=== PATIENT | female | born 1950 | race Caucasian/White ===

== ENCOUNTER 2021-01-21 15:47 | Emergency (ER) | payer OTHER, BC ==
[2021-01-21 16:39] VITALS: BP 118/65; PULSE 57; TEMP 98.6; BMI 30.7
[2021-01-21] MEDS ORDERED: ACETAMINOPHEN 500 MG TABLET (FP) PO ONE (16:54)
[2021-01-21] MEDS ORDERED: METHOCARBAMOL 500 MG TABLET PO ONE (16:54)
[2021-01-21] MEDS ORDERED: METHOCARBAMOL 500 MG TABLET ONE (17:00)
[2021-01-21] MEDS ORDERED: ACETAMINOPHEN 500 MG TABLET (FP) ONE (17:00)
== END 2021-01-21 18:42 | disposition home or self-care (01) ==
LOC: FER 15:47
DX: S50.311A Abrasion of right elbow, initial encounter (principal); S80.211A Abrasion, right knee, initial encounter; M79.644 Pain in right finger(s); W01.198A Fall on same level from slipping, tripping and stumbling with subsequent striking against other object, initial encounter; Y92.480 Sidewalk as the place of occurrence of the external cause; Y93.01 Activity, walking, marching and hiking
CPT/HCPCS: 71101-TC-RT-FY; 73030-TC-RT-FY; 73070-TC-RT-FY; 73110-TC-RT-FY; 73130-TC-RT-FY; 73562-TC-RT-FY; 73610-TC-LT-FY; 73630-TC-LT; 99285-25

== ENCOUNTER 2022-11-08 09:05 | Emergency (ER) | payer OTHER, BC ==
[2022-11-08] MEDS ORDERED: CLINDAMYCIN HCL 300 MG CAPSULE PO ONE (09:10)
[2022-11-08] MEDS ORDERED: CLINDAMYCIN HCL 150 MG CAPSULE (FP) ONE (09:15)
== END 2022-11-08 09:36 | disposition home or self-care (01) ==
LOC: FER 09:05
DX: L03.012 Cellulitis of left finger (principal)
CPT/HCPCS: 99282-25

== ENCOUNTER 2024-02-09 08:32 | Emergency (ER) | payer OTHER, BC ==
[2024-02-09 08:51] VITALS: BP 121/64; PULSE 81; RESP 20; TEMP 97.2; BMI 28.3
[2024-02-09] MEDS: SODIUM CHLORIDE 0.9% 500 ML INFUS.BAG IV ONE (09:45)
[2024-02-09] MEDS ORDERED: ACETAMINOPHEN 500 MG TABLET (FP) ONE (09:46)
[2024-02-09] MEDS: ACETAMINOPHEN 500 MG TABLET (FP) PO ONE (09:46)
[2024-02-09 09:50] LABS: ALBUMIN 3.5 g/dl (3.4-5.0); BILIRUBIN,TOTAL 0.3 mg/dl (0.2-1); CALCIUM 9.1 mg/dl (8.5-10.1); CREATININE 1.2 mg/dl (0.6-1.3); HEMATOCRIT 37.2 % (32.4-45.2); HEMOGLOBIN 11.3 G/dL (10.7-15.3); MCH 25.1 pg (25.7-33.7); MCHC 30.3 g/dl (32.0-36.0); MEAN CELL VOLUME 82.6 fl (80-96); MEAN PLT VOLUME 8.5 fl (7.5-11.1); PLATELET COUNT 286.3 10^3/uL (134-434); POTASSIUM 4.7 mmol/L (3.5-5.1); RDW 18.1 % (11.6-15.6); TOT PROT 6.1 g/dl (6.4-8.2); WHITE BLOOD COUNT 6.9 10^3/uL (4.0-10.8)
[2024-02-09 09:55] LABS: PLATELET ESTIMATE ADEQUATE
== END 2024-02-09 12:06 | disposition home or self-care (01) ==
LOC: FER 08:32
DX: I44.0 Atrioventricular block, first degree (principal); L03.116 Cellulitis of left lower limb; M79.89 Other specified soft tissue disorders; Z20.822 Contact with and (suspected) exposure to COVID-19
CPT/HCPCS: 0241U-QW; 36415; 73590-TC-LT-FY; 73700-TC-RT; 80053; 81003; 81015; 84484; 85027; 93005; 93971-TC; 99285-25